=== PATIENT | female | born 1955 | race Caucasian/White ===

== ENCOUNTER → 2022-02-28 | Emergency (ER) | payer MEDICARE ==
[~2022-02-28] MED LIST: ACTONEL; ADVAIR IH; ALBUTEROL0.09 MG/A1 IH; ALBUTEROL0.83 MG/ML IH; ALEVE 220MG220 MG PO; ATROVENT INHALE14 GM IH; AZITHROMYCIN250 MG PO; BENTYL; BENTYL 20MG TAB20 MG PO; BENTYL10 MG PO; BIAXIN XL500 MG PO; CARAFATE 1GM1 G PO; CELEBREX400 MG PO; CEPHALEXIN500 M1 PO; CIPRO 500MG TA500 MG PO; DILAUDID 2MG TAB2 MG PO; DUO NEB; DUONEB 3 MG/3 ML3 ML IH; ERY TABS333 MG PO; Entex LA PO; FLEXERIL 1010 MG/TAB PO; FLEXERIL10 MG PO; HYDROMORPHONE HC2 MG PO; INDOMETHACIN; IPRATROPIUM BROM3 M1 IH; LEVAQUIN; LEVAQUIN 5500 MG/TAB PO; LEVAQUIN 750MG750 MG PO; LEVAQUIN500 MG PO; LORTAB 10/500 51 TAB PO; LORTAB 5/500 501 TAB PO; LORTAB 7.5/5001 TAB PO; MACROBID100 MG PO; MEPERIDINE HCL50 MG PO; METOPROLOL50 MG PO; METRONIDAZOLE500 MG PO; MULTIVITAMIN W/1 TAB PO; NAPROXEN EC500 MG PO; NEBULIZER AEROS1 DEV; NEXIUM 20MG CAP20 MG PO; NEXIUM40 MG PO; NORCO 325 MG-51 TAB PO; NORCO 325 MG-7.1 TAB PO; OXYCODONE; OXYCODONE5 M1 PO; OXYCONTIN10 MG PO; OXYCONTIN30 MG PO; PERCOCET 325 MG1 TA2 PO; PERCOCET 325 MG1 TAB PO; PERCOCET 5/321 UDTAB PO; PERCOCET 500 MG1 TAB PO; PHENERGAN 25 TA25 MG PO; PHENERGAN W/CO120 ML PO; PHENERGAN25 MG RC; PREDNISONE 20MG20 MG PO; PREDNISONE20 MG PO; PREMARIN 0.60.625 M1 PO; PREMARIN 0.60.625 MG PO; PRILOSEC 20MG20 MG PO; PROVENTIL0.09 MG/A1 IH; PULMICORT0.5 MG/2 M IH; SPIRIVA INH IH; SPIRIVA18 MCG IH; Spiriva; TESSALON PERLE100 MG PO; TESSALON PERLE200 MG PO; TUSS PO; TYLENOL 325MG325 MG PO; ULTRAM50 MG PO; VENTOLIN0.09 MG IH; VITAMIN C BUFF500 MG PO; ZITHROMAX 250M250 MG PO; ZITHROMAX TRI-500 MG PO; ZITHROMAX Z PA250 MG PO; ZOFRAN 4MG T4 MG/TAB PO; ZOFRAN4 M1 PO; [UNRECOGNIZED DRUG - OTHER]; spiriva
== END ==
LOC: COL.ER 11:28
DX: Z72.89 Other problems related to lifestyle (principal)